=== PATIENT | female | born 1955 | race Caucasian/White ===

== ENCOUNTER 2017-11-01 09:14 | Emergency (ER) | payer BC, OTHER ==
[~2017-11-01] VITALS: Ht 167.6 cm; Wt 64.9 kg
--- NOTE | ~2017-11-01 | EKG ---
[address] [place] [address] ELECTROCARDIOGRAM REPORT Name: ASHLEY ALFRED Room #: [facility] Christina#: [id number] Admission: 11/01/17 Attend Phys: Discharge: 11/01/17 Date of : 51 Report #: [id number] THIS REPORT FOR: //name// [facility] ED Test Date: 2017-11-01 Test Time: 09:49:50 Pat Name: ASHLEY ALFRED Department: Room: Gender: F [employer]: 10 : 1955 Requested By: Luis Blount Order Number: [id number] MD: Jimmy Fan Measurements Intervals Silt Rate: 68 P: 63 DC: 171 QRS: 49 QRSD: 101 T: 82 QT: 465 QTc: 495 Interpretive Statements Sinus rhythm No previous ECG available for comparison Electronically Signed On 11-01-2017 17:18:05 CDT by Jimmy Fan [email or web address] <ELECTRONICALLY SIGNED> By: Jimmy Fan MD 11/01/17 1718 0949 0949 Jimmy Fan MD /EPI
[2017-11-01 09:50] LABS: ABSOLUTE NEUTROPHILS 6.6 thou/uL (1.4-8.2); BASOPHILS 0.3 % (0.0-2.0); HEMATOCRIT 41.5 % (37.0-47.0); HEMOGLOBIN 14.5 gm/dL (12.0-15.0); LYMPHOCYTES 9.6 % (24.0-44.0); MCH 32.4 pg (26.0-34.0); MCHC 35.1 g/dL (28.0-37.0); MCV 92.2 fL (80.0-100.0); MONOCYTES 4.8 % (1.0-8.0); PLATELET COUNT 365 thou/uL (150-400); POLYS 84.3 % (36.0-66.0); WBC 7.9 thou/uL (4.0-11.0)
[2017-11-01 10:00] LABS: ANION GAP 6 mmol/L (7-16); BUN 20 mg/dL (7-18); CALCIUM 9.4 mg/dL (8.5-10.1); CHLORIDE 103 mmol/L (98-107); CO2 27 mmol/L (21-32); CREATININE 0.9 mg/dL (0.6-1.0); GLUCOSE 161 mg/dL (74-106); POTASSIUM 4.4 mmol/L (3.5-5.1); SODIUM 136 mmol/L (136-145)
[2017-11-01] MEDS ORDERED: SINGULAIR 10 MG10 M1 PO (10:04)
[2017-11-01] MEDS ORDERED: CRESTOR10 MG PO (10:05)
[2017-11-01] MEDS ORDERED: WELLBUTRIN XL300 MG PO (10:05)
[2017-11-01] MEDS ORDERED: RESTORIL15 MG PO (10:05)
[2017-11-01] MEDS ORDERED: FLONASE 0.05%50 MCG NASAL (10:06)
[2017-11-01] MEDS ORDERED: CYMBALTA60 MG PO (10:06)
[2017-11-01 10:07] LABS: TROPONIN-I < 0.04 ng/mL (<0.06)
[2017-11-01] MEDS ORDERED: ONDANSETRON HCL4 M2 PO (10:58)
[2017-11-01] MEDS ORDERED: AMOXICILLIN500 M1 PO (10:58)
[2017-11-01] MEDS ORDERED: ANTIVERT25 MG PO (10:58)
[2017-11-01 11:04] VITALS: BP 133/80
== END 2017-11-01 11:10 | disposition home or self-care (01) ==
LOC: ER 09:14
PROVIDERS: Nurse Practitioner
DX: J32.9 Chronic sinusitis, unspecified (principal); R11.2 Nausea with vomiting, unspecified; R42 Dizziness and giddiness; Z88.5 Allergy status to narcotic agent; Z88.2 Allergy status to sulfonamides